=== PATIENT | female | born 1945 | race Caucasian/White ===

== ENCOUNTER 2016-08-14 06:43 | Outpatient (CLI) | payer MEDICARE ==
[~2016-08-14] VITALS: Ht 160 cm; Wt 108.4 kg
[2016-08-14] VITALS (13 sets, daily range): BP systolic 126–176; BP diastolic 54–91
[2016-08-14] MEDS ORDERED: IV 1/2 NORMAL SALINE 1,000 ML IV SCH (06:57)
[2016-08-14] MEDS ORDERED: HEPARIN for ARTERIAL LINE 1,500 ML ONE (07:06)
[2016-08-14] MEDS ORDERED: LIDOCAINE 2% 20 ML VIAL. ONE ×2 (07:06→08:37)
[2016-08-14] MEDS ORDERED: IODIXANOL 320 MG/ML 100 ML VIAL. ONE (07:06)
[2016-08-14] MEDS ORDERED: PROAIR HFA8.5 GM INH (07:49)
[2016-08-14] MEDS ORDERED: METF500T4 PO (07:49)
[2016-08-14] MEDS ORDERED: BUDE10.22 IH (07:49)
[2016-08-14] MEDS ORDERED: CETI10TA16 PO (07:49)
[2016-08-14] MEDS ORDERED: NITR0.4T SL (07:49)
[2016-08-14] MEDS ORDERED: CYAN25003 SL (07:49)
[2016-08-14] MEDS ORDERED: AZEL1KIT2 NS (07:49)
[2016-08-14] MEDS ORDERED: FLUT16SP NS (07:49)
[2016-08-14] MEDS ORDERED: HYDR25TA9 PO (07:49)
[2016-08-14] MEDS ORDERED: TIOT18CA IH (07:49)
[2016-08-14 07:52] LABS: HEMATOCRIT 37.5 % (36.0-47.0); HEMOGLOBIN 12.5 g/dL (12.0-15.5); RED BLOOD COUNT 3.91 x10^6/uL (3.50-5.40); RED CELL DISTRIBUTION WIDTH 13.9 % (11.5-14.5); WHITE BLOOD COUNT 7.2 x10^3/uL (4.0-11.0)
[2016-08-14 07:54] LABS: CREATININE 0.9 mg/dL (0.6-1.0); GFR 61.5; POTASSIUM 3.4 mmol/L (3.5-5.1)
[2016-08-14 08:06] LABS: PROTHROMBIN TIME PATIENT 12.9 SEC (11.7-14.0)
--- NOTE | 2016-08-14 08:12 | PDOC ---
MODERATE SEDATION ASSESSMENT RISKS/ALTERNATIVES Risks/Alternatives Risks and alternatives of this type of sedation and procedure discussed with: RISK/ALTERNATIVES: Patient H & P ON CHART H & P H & P on chart and reviewed for co-morbid conditions and appropriate labs. H&P ON CHART: Yes STATUS PREG STATUS ASSESSED: N/A MEDS/ALLERGIES REVIEWED Meds/Allergies Reviewed Medications and Allergies including time and route of recently administered narcotics and sedatives. MEDS/ALLERGIES REVIEWED: Yes ASA RATING ASA RATING: II AIRWAY ASSESSMENT Airway Assessment Airway patency, oral function limitations, presence of caps, crowns, dentures, partials, and ability to extend neck assessed. AIRWAY ASSESSMENT: Yes MALLAMPATI SCORE MALLAMPATI SCORE: II PRE-SEDATION ASSESSMENT PRE-SEDATION ASSESSMENT: Yes PEYTON MCKINNON MD Aug 14, 2016 08:12
[2016-08-14] MEDS ORDERED: NITROGLYCERIN 200 MCG/2 ML SYRINGE FOR CATH/VASC LAB. ONE ×2 (08:18→08:35)
[2016-08-14] MEDS ORDERED: MIDAZOLAM HCL/PF 5 MG/5 ML VIAL. ONE (08:18)
[2016-08-14] MEDS ORDERED: fentaNYL PF VIAL 250 MCG/5 ML VIAL ONE (08:18)
[2016-08-14] MEDS ORDERED: HEPARIN for IV BOLUS 10,000 UNIT/10 ML VIAL. ONE ×2 (08:18→08:35)
[2016-08-14] MEDS ORDERED: VERAPAMIL 5 MG/2 ML VIAL. ONE (08:35)
[2016-08-14] MEDS ORDERED: fentaNYL PF VIAL 250 MCG/5 ML VIAL IV ONE (09:00)
[2016-08-14] MEDS ORDERED: HEPARIN for IV BOLUS 10,000 UNIT/10 ML VIAL. IART ONE (09:00)
[2016-08-14] MEDS ORDERED: VERAPAMIL 5 MG/2 ML VIAL. IART ONE (09:00)
[2016-08-14] MEDS ORDERED: NITROGLYCERIN 200 MCG/2 ML SYRINGE FOR CATH/VASC LAB. IART ONE (09:00)
[2016-08-14] MEDS ORDERED: MIDAZOLAM HCL/PF 5 MG/5 ML VIAL. IV ONE (09:00)
[2016-08-14] MEDS ORDERED: IODIXANOL 320 MG/ML 100 ML VIAL. IART ONE (09:00)
[2016-08-14] MEDS ORDERED: LIDOCAINE 2% 20 ML VIAL. IJ ONE (09:00)
[2016-08-14] MEDS ORDERED: CONTRAST GIVEN MC PRN (09:15)
--- NOTE | 2016-08-15 08:06 | CARD ---
APPROVED REPORT Patient StatusOUT-PATIENT [employer]: Jaime Woodall RT (R) Procedure(s) performed: Aortogram with bilateeral femoral run-off HISTORY The patient is a 71 year-old female with a history of : hypertension, dyslipidemia. INDICATION FOR PROCEDURE The indication(s) include : Bilateral claudication, +STEPHANI. PROCEDURE NARRATIVE After appropriate informed consent the patient was brought to the catheterization laboratory and plac ed in the supine position. Due to the patient's morbid obesity she was unable to lay completely flat and had to be put on an incline. The bilateral groins were prepped and draped in usual sterile fashio n but due to her obesity it was felt that groin access would be high risk and therefore a right radia l approach was performed to obtain an aortogram with femoral runoff. Under 2% lidocaine local anesthesia the right radial artery was accessed after appropriate prep and d raping with a micropuncture kit and a 6 [place] glide sheath was inserted without difficulty. Next a p igtail catheter was advanced to the descending aorta with the aid of a J-wire and a Glidewire. Digita l subtraction angiography was then performed. FINDINGS: Aorta: No significant disease. RCIA: No significant disease. REIA: No significant disease. RIIA: Mild diffuse irregularities. RCFA: No significant disease. RPROF: No significant disease. RSFA: Moderate diffuse irregularities in the mid to distal segment with a 80% stenosis at the adducto r canal. RPOP: No significant disease. *Below the knee there is three vessel run-off with mild disease at the TP trunk. LCIA: No significant disease. NATHALIE: No significant disease. LIIA: No significant disease. LCFA: No significant disease. LPROF: No significant disease. LSFA: Moderate disease of up to 50%. *Below the knee there is three vessel run-off with mild disease. Conclusion 1. Significant RSFA disease. 2. Due to the patient's pain being mostly on the left side at this time, will defer intervention. 3. If she has more claudication pain on the right or ischemic findings, then will plan for pedal appr oach. Recommendations Aggressive Medical Therapy Weight Loss Reduction Program
== END 2016-08-14 13:00 | disposition home or self-care (01) ==
LOC: CCL 06:43
PROVIDERS: ATTEND Internal Medicine Cardiovascular Disease
DX: I70.213 Atherosclerosis of native arteries of extremities with intermittent claudication, bilateral legs (principal); I10 Essential (primary) hypertension; E78.5 Hyperlipidemia, unspecified; E78.00 Pure hypercholesterolemia, unspecified; J44.9 Chronic obstructive pulmonary disease, unspecified; Z90.49 Acquired absence of other specified parts of digestive tract; Z87.39 Personal history of other diseases of the musculoskeletal system and connective tissue; E11.9 Type 2 diabetes mellitus without complications; F17.200 Nicotine dependence, unspecified, uncomplicated; Z88.1 Allergy status to other antibiotic agents; Z91.040 Latex allergy status; Z91.013 Allergy to seafood; Z79.01 Long term (current) use of anticoagulants
CPT/HCPCS: 36415; 75630; 80048; 85027; 85610; 85730; 99152; 99153; C1769; C1892; J2250; J3010; J3490; Q9967; C1887; J1644; J2001

== ENCOUNTER → 2018-08-08 | Outpatient (CLI) | payer MEDICARE ==
[2016-08-14 12:14] VITALS: BP 126/60
[~2018-08-08] MED LIST: ALBU2.5V8 INH; AZEL1KIT2 NS; BUDE10.22 IH; CETI10TA16 PO; CYAN25003 SL; FLUT16SP NS; HEPARIN PF 500 UNIT/5 ML DISP.SYRIN. IV ONE; HYDR-2145 PO; METF500T16 PO; NITR0.4T SL; PERFLUTREN PROTEIN-A MICROSPHR 0.22 MG/ML 3 ML VIAL. IV ONE; TIOT18CA IH
--- NOTE | 2018-08-08 12:59 | CARD ---
MR#: [id number] Date of Study: 08/08/2018 Ordering Physician: PEYTON MCKINNON, Referring Physician: PEYTON MCKINNON, Tech: Chey Painter APPROVED REPORT EXAM: Two-dimensional and M-mode echocardiogram with Doppler and color Doppler. Other Information Quality : FairHR: 100bpm INDICATION COPD Dyspnea RISK FACTORS Hypertension Hyperlipidemia Diabetes Previous smoker 2D DIMENSIONS RVDd3.3 (2.9-3.5cm)Left Atrium(2D)3.2 (1.6-4.0cm) IVSd1.5 (0.7-1.1cm)Aortic Root(2D)3.1 (2.0-3.7cm) LVDd4.4 (3.9-5.9cm)LVOT Diameter2.3 (1.8-2.4cm) PWd1.1 (0.7-1.1cm)LVDs2.3 (2.5-4.0cm) FS (%) 47.1 %SV67.5 ml LVEF(%)78.7 (>50%) Aortic Valve AoV Peak Agustin.148.3cm/sAoV VTI27.9cm AO Peak GR.8.8mmHgLVOT Peak Agustin.103.4cm/s LVOT VTI 18.76cmAO Mean GR.6mmHg HENRRY (VMAX)2.05nu7ABU (VTI)2.79cm2 Mitral Valve MV E Mnrmnysr27.6cm/sMV DECEL MVUI62tl MV A Hnsptwmg171.4cm/sMV PGV38se E/A Ratio0.3MVA (PHT)9.15cm2 TDI E/Lateral E'5.4E/Medial E'5.8 Pulmonary Valve PV Peak Httaqwxy279.7cm/sPV Peak Grad.4mmHg Tricuspid Valve TR P. Iqnbjnqy511fz/sRAP [id number] TR Peak Gr.97toPmEHDE15mgUf Pulmonary Vein S1 Icrovplg49.1cm/sD2 Ojxtyaiu51.8cm/s PVa [id number] LEFT VENTRICLE The left ventricle is normal size. There is mild to moderate concentric left ventricular hypertrophy. The left ventricular systolic function is normal. The Ejection Fraction is 55-60%. There is normal L V segmental wall motion. Transmitral Doppler flow pattern is Grade I-abnormal relaxation pattern. RIGHT VENTRICLE The right ventricle is normal size. There is normal right ventricular wall thickness. The right ventr icular systolic function is normal. ATRIA The left atrium size is normal. The right atrium size is normal. Interatrial septum not well visualiz ed. AORTIC VALVE The aortic valve is normal in structure and function. Doppler and Color Flow revealed no significant aortic regurgitation. There is no significant aortic valvular stenosis. MITRAL VALVE The mitral valve is normal in structure and function. There is no evidence of mitral valve prolapse. There is no mitral valve stenosis. Doppler and Color Flow revealed no mitral valve regurgitation note d. TRICUSPID VALVE The tricuspid valve is not well visualized. Doppler and Color Flow revealed trace tricuspid regurgita tion with an estimated PAP of 45 mmHg. There is no tricuspid valve stenosis. PULMONIC VALVE The pulmonic valve is not well visualized. Doppler and Color Flow revealed trace pulmonic valvular re gurgitation. GREAT VESSELS The aortic root is normal in size. The IVC is normal in size and collapses >50% with inspiration. PERICARDIAL EFFUSION There is no evidence of significant pericardial effusion. Critical Notification Critical Value: No <Conclusion> The left ventricular systolic function is normal. The Ejection Fraction is 55-60%. There is normal LV segmental wall motion. Transmitral Doppler flow pattern is Grade I-abnormal relaxation pattern. Trace tricuspid regurgitation with an estimated PAP of 45 mmHg. There is no evidence of significant pericardial effusion. Signed by : Song Valentin, Electronically Approved : 08/08/2018 12:59:04
== END | disposition home or self-care (01) ==
LOC: ECHO 09:50
PROVIDERS: ATTEND Internal Medicine Cardiovascular Disease
DX: I11.9 Hypertensive heart disease without heart failure (principal); E78.5 Hyperlipidemia, unspecified; E11.9 Type 2 diabetes mellitus without complications; Z87.891 Personal history of nicotine dependence
CPT/HCPCS: C8929; Q9956